=== PATIENT | female | born 1990 | race Caucasian/White ===

== ENCOUNTER 2019-07-29 12:49 | Emergency (ER) | payer BC, SELFPAY ==
[2019-07-29 12:50] VITALS: BP 135/81; PULSE 111; RESP 18; TEMP 38.4; O2SAT 96; BMI 45.4
[2019-07-29 13:02] VITALS: BP 144/82; PULSE 102; RESP 16; O2SAT 97
--- NOTE | 2019-07-29 13:05 | RAD_ITS ---
STUDY: X-RAY CHEST REASON FOR EXAM: Female, 29 years old. COUGH, FEVER, NAUSEA, WEAKNESS TECHNIQUE: PA and lateral views of the chest. COMPARISON: None. FINDINGS: The lungs are clear and expanded. There is no demonstrated pleural abnormality. Normal size heart. Normal mediastinum and berry. Normal visualized pulmonary arteries. Normal visualized aortic arch and descending thoracic aorta. Normal visualized thoracic spine. Normal visualized ribs, clavicles, and shoulders. There is no demonstrated abnormality of the visualized soft tissue structures of the upper abdomen. RAD/Chest PA and Lateral IMPRESSION: Normal x-ray examination of the chest. Electronically Signed: Kirit Bonilla MD at 13:26 EST Tel , Service support ,
--- NOTE | 2019-07-29 13:47 | ED.DCSUM_ITS ---
- ER Visit Summary Date of Service: 07/29/19 Chief Complaint: Cough with fever and chills History of Present Illness: The patient is a 29 F 3 of hypothyroidism vasovagal syncope and endometriosis. 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 Intermittent nausea vomiting with coughing. No abdominal pain. No diarrhea. No melena. No dysuria. Physical Examination: Young female vital signs are stable. Temperature 101.2. She does not look septic or toxic. H EENT exam normal except a mildly dry mucous membranes. TMs normal. Posterior pharynx normal. Mildly dry mucous membranes. No erythema or exudate or trouble swallowing breathing. Neck nontender no lymphadenopathy. No meningismus. Lungs clear to auscultation bilaterally. Dry cough. Heart tachycardic no murmur rate about 110. Abdomen soft nontender normal bowel sounds no peritoneal signs. Extremities moves all 4. Calves nontender no edema no cords. Skin unremarkable no rash. Back nontender. Neurologically patient is awake alert with no focal motor deficits. Test Results: Chest x-ray AP lateral 2 views read myself shows no acute abnormality. Normal cardiac silhouette mediastinum. Emergency Department Course and Treatment: Ramonita with patient treatment all. She did not think she could hold down p.o. fluids. She will be given IV liter normal saline. IV Zofran. P.o. Tylenol. Treatment Plan: History and exam consistent with viral syndrome most likely influenza. Fluids and rest. Alternate Tylenol Motrin. Zofran for nausea. Follow-up if not improving return if worse. Repeat exam patient is doing better after IV fluids will be discharged home. Disposition: Discharge Impression: Acute viral syndrome secondary to influenza Nausea and vomiting with mild dehydration This note was generated with [employer] dictation software. It may contain incorrect words, spelling, and punctuation that were not noted in review of the chart prior to signing ED Disposition - Plan for ED Patient: Referrals: Lilly Russo PA [Primary Care Provider] -
--- NOTE | 2019-07-29 13:50 | ED.DEP ---
ED Disposition - Plan for ED Patient: Disposition: Home or Assisted Living Instructions: VIRAL SYNDROME (Adult) Prescriptions: Ondansetron [Zofran Odt] 4 mg PO Q8H PRN PRN #7 tab PRN Reason: Nausea Prescription Printed Referrals: Lilly Russo PA [Primary Care Provider] - 3-5 Days if not improving Additional Instructions: Plenty of fluids and rest. Alternate Tylenol and Motrin for fever. Zofran as needed for nausea. Follow-up if not improving return if worse.
[2019-07-29] MEDS: 0.9% Normal Saline 1,000 ML 999 ML IV (14:40)
[2019-07-29] MEDS: Ondansetron 4 MG/2 ML Vial IV (14:40)
[2019-07-29 14:41] VITALS: PULSE 96; RESP 15; O2SAT 98
[2019-07-29 16:08] VITALS: BP 114/72; PULSE 100; RESP 16; O2SAT 99
== END 2019-07-29 16:12 | disposition home or self-care (01) ==
PROVIDERS: Emergency Provider Emergency Medicine; PCP Physician Assistant
DX: B34.9 Viral infection, unspecified (principal); J11.1 Influenza due to unidentified influenza virus with other respiratory manifestations; E86.0 Dehydration; R11.2 Nausea with vomiting, unspecified
CPT/HCPCS: 71046; 96361; 96374; 99283; J7030; J2405

== ENCOUNTER 2020-02-18 14:21 | Emergency (ER) | payer BC, SELFPAY ==
[2020-02-18 14:22] VITALS: BP 143/93; PULSE 116; RESP 24; TEMP 36.6; O2SAT 99; BMI 45.9
[2020-02-18 14:25] VITALS: BP 143/93; PULSE 116; RESP 24; TEMP 36.6; O2SAT 99
--- NOTE | 2020-02-18 14:36 | RAD_ITS ---
STUDY: X-RAY CHEST REASON FOR EXAM: Female, 30 years old. Shortness of breath and cough started on February 05, worsening yesterday. TECHNIQUE: Single AP portable view of the chest. COMPARISON: Comparison is made with prior study dated 07/29/2019. FINDINGS: Hyperinflation. The lungs are clear. There is no demonstrated pleural abnormality. Normal size heart. Normal mediastinum and berry. Normal visualized pulmonary arteries. Normal visualized aortic arch and descending thoracic aorta. Normal visualized thoracic spine. Normal visualized ribs, clavicles, and shoulders. There is no demonstrated abnormality of the visualized soft tissue structures of the upper abdomen. RAD/Chest 1 View (Portable) IMPRESSION: Normal x-ray examination of the chest. Electronically Signed: Norberto Young, at 15:41 EDT , Service support ,
--- NOTE | 2020-02-18 14:56 | ED.VIS.GEN ---
History of Present Illness Chief Complaint: Shortness of Breath Narrative: Patient started having respiratory symptoms about 12 days ago, she had a virtual visit and had a negative COVID test. She has had shortness of breath, productive cough and wheezing since then. She thinks it somewhat worse now. She has a subjective fever. She has no abdominal pain she has no urinary symptoms. She has no DVT or PE risk factors. She has no back pain or chest pain. She has no pleuritic component. No lower extremity edema or calf pain. Past Medical History - Allergies and Home Meds Allergies/Adverse Reactions: Allergies ciprofloxacin [From Cipro] Allergy (Verified 02/18/20 14:22) Anaphylaxis ciprofloxacin HCl [From Cipro] Allergy (Verified 02/18/20 14:22) Anaphylaxis ibuprofen Allergy (Verified 02/18/20 14:22) Anaphylaxis levofloxacin [From Levaquin] Allergy (Verified 02/18/20 14:22) Anaphylaxis Penicillins [PCN] Allergy (Verified 02/18/20 14:22) Anaphylaxis shellfish derived Allergy (Verified 02/18/20 14:22) Anaphylaxis tree nut Allergy (Verified 02/18/20 14:22) Anaphylaxis Primary Care Physician: Lilly Russo PA [Primary Care Provider] - Past Medical History: - - Asthma, depression Smoking Status: Never smoker Review of Systems General: Denies: Fever Eyes: Denies: Visual changes - bilaterally Cardiovascular: Denies: Chest pain Respiratory: Reports: Dyspnea, Cough Gastrointestinal: Denies: Abdominal pain, Nausea, Vomiting Genitourinary: Denies: Dysuria Musculoskeletal: Denies: Myalgias, Arthralgias Skin: Denies: Rash, Abscess, Wounds Neurological: Denies: Headache, Weakness Psych: Denies: Depression Hematologic: Denies: Easy bruising, Easy bleeding Allergy: Denies: Uticaria, Swelling of the mouth, Swelling of the tongue Physical Exam Vital Signs/Narrative: Vital Signs Temp Pulse Resp BP Pulse Ox 02/18/20 14:22 97.8 F 116 H 24 H 143/93 H 99 General: Well nourished, Well developed, - - She appears slightly anxious but does not appear in significant distress she is relatively comfortable in the bed. Head: Normocephalic ENT: Moist mucous membranes Neck: Supple Cardiovascular: Regular rhythm, No murmurs, Tachycardia Respiratory: No distress, - - She has coarse bilateral breath sounds with some wheezing. She is slightly tachypneic. She is speaking in full sentences. Abdomen: Soft, Nontender Back: Nontender, Normal Inspection. Negative for: CVA tenderness Extremities: Nontender, No edema Skin: Normal color Neurological: Alert, Oriented x3 Diagnostic/Tx/Re-eval - Medical Decision Making Has a normal ED work-up, COVID is still pending. Regardless she is told to quarantine until she gets results. She has a normal pulse ox. She now has a normal heart rate after nebulizer and she has clear lungs. I am not worried about a PE. She has no risk factors and her symptomatology is not that of a pulmonary embolus. I will discharge her in stable condition. ED Disposition - Plan for ED Patient: Disposition: Home or Assisted Living Diagnosis: Asthma Referrals: Lilly Russo PA [Primary Care Provider] - 3-5 Days
[2020-02-18 15:50] LABS: Absolute Lymphocyte Count 1.87 X10^3/uL (0.83-4.51); Absolute Neutrophil Count 7.9 X10^3/uL (2.0-7.7); Basophil# 0.04 X10^3/uL; Basophil% 0.4 % (0-1); Eosinophil# 0.18 X10^3/uL; Eosinophils% 1.7 % (0-5); Hemoglobin 14.2 g/dL (12.0-15.0); Lymphocyte # 1.87 X10^3/ul (4.0); Lymphocyte % 17.6 % (19-41); Mean Corpuscular Hgb 26.9 pg (27.0-32.0); Mean Corpuscular Volume 81.6 fL (81-99); Mean Platelet Vol. 9.5 fl (6.2-12.0); Monocyte# 0.64 X10^3/uL; NRBC Flagged by Analyzer 0 % (0-5); Neutrophil # 7.86 X10^3/uL (2.7-7.7); Platelet Count 355 K/mm3 (150-450); RBC Distribution Width CV 12.6 % (11.6-14.6); RBC Distribution Width SD 37.2 fl (35.1-43.9); Red Blood Count 5.27 M/mm3 (4.2-5.4); White Blood Count 10.6 K/mm3 (4.4-11.0)
[2020-02-18 16:05] LABS: ALB/GLOB Ratio 0.9 RATIO (0.9-2.4); AST(SGOT) 10 U/L (15-37); Alanine Aminotransfer ALT/SGPT 23 U/L (13-56); Albumin, Serum 3.3 g/dL (3.2-5.0); Alkaline Phosphatase 112 U/L (45-117); Anion Gap 5 (5-15); BUN 14 mg/dL (7-18); BUN/Creat Ratio 21.4 RATIO (10-20); Chloride 110 mmol/L (98-107); Creatinine, Serum 0.65 mg/dL (0.55-1.02); EST Glomerular Filtration Rate 114 mL/min (>60); Est Glom Filt Rate - Afr Amer 138 mL/min (>60); Estimated Creatinine Clearance 124.19 ml/min; Globulin 3.8 g/dL (2.2-4.2); Glucose 100 mg/dL (74-106); Potassium 3.9 mmol/L (3.5-5.1); Protein, Total 7.1 g/dL (6.4-8.2); Sodium Level 141 mmol/L (136-145)
[2020-02-18 16:46] VITALS: BP 129/79; PULSE 97; RESP 16; O2SAT 97
== END 2020-02-18 16:56 | disposition home or self-care (01) ==
PROVIDERS: Emergency Provider Emergency Medicine; PCP Physician Assistant
DX: J45.909 Unspecified asthma, uncomplicated (principal); F32.9 Major depressive disorder, single episode, unspecified
CPT/HCPCS: 71045; 80053; 85025; 87635; 99284; C9803; A4216; U0003

== ENCOUNTER → 2022-05-27 | Outpatient (CLI) | payer BC, SELFPAY ==
[2022-05-26 08:25] LABS: Hemoglobin 14.5 g/dL (12.0-15.0); Mean Corp Hgb Conc 32.2 g/dL (32-36); Mean Corpuscular Hgb 26.7 pg (27.0-32.0); Mean Corpuscular Volume 82.7 fL (81-99); Mean Platelet Vol. 9.1 fl (6.2-12.0); Platelet Count 391 K/mm3 (150-450); RBC Distribution Width CV 12.8 % (11.6-14.6); RBC Distribution Width SD 38.4 fl (35.1-43.9); Red Blood Count 5.44 M/mm3 (4.2-5.4); White Blood Count 8.5 K/mm3 (4.4-11.0)
[2022-05-26 09:14] LABS: Vitamin B12 568 pg/mL (211-911); Vitamin D,25 Hydroxy 18.9 ng/mL
[2022-05-26 09:29] LABS: Anion Gap 7 (5-15); BUN 14 mg/dL (7-18); BUN/Creat Ratio 19.9 RATIO (10-20); Calcium,Total 8.4 mg/dL (8.5-10.1); Chloride 107 mmol/L (98-107); Cholesterol 225 mg/dL (200); EST Glomerular Filtration Rate 103 mL/min (>60); Est Glom Filt Rate - Afr Amer 125 mL/min (>60); Ferritin 68 ng/mL (8-252); Glucose 101 mg/dL (74-106); High Density Lipoprotein 53 mg/dL; Iron 76 ug/dL (50-170); Iron Binding Capacity,Total 357 ug/dL (250-450); Potassium 4.1 mmol/L (3.5-5.1); Sodium Level 139 mmol/L (136-145); Thyroid Stim Hormone (TSH) 4.35 uIU/mL (0.358-3.74); Triglycerides 84 mg/dL; Very Low Density Lipoprotein 17 mg/dL (5-40)
--- NOTE | 2022-05-27 09:05 | EKG12_ITS ---
Test Reason : NEW MED START Blood Pressure : / mmHG Vent. Rate : 074 BPM Atrial Rate : 074 BPM P-R Int : 154 ms QRS Dur : 088 ms QT Int : 386 ms P-R-T Axes : 025 027 017 degrees QTc Int : 428 ms Normal sinus rhythm Normal ECG Confirmed by YOSSI ONEIL, TEMO ([id number]), assistant editor KELVIN BYRD ([id number]) on 05/28/2022 7:50:04 AM Referred By: Renetta Collins Confirmed By:TEMO SY MD
== END | disposition home or self-care (01) ==
LOC: PSN 09:04
PROVIDERS: PCP Physician Assistant; Referring Provider Physician Assistant; Visit Provider Physician Assistant
DX: E55.9 Vitamin D deficiency, unspecified (principal); Z79.899 Other long term (current) drug therapy
CPT/HCPCS: 36415; 80048; 80061; 82306; 82607; 82728; 82746; 83540; 83550; 84443; 85027; 93005

== ENCOUNTER 2022-08-03 08:00 | Outpatient (RCR) | payer BC, SELFPAY ==
--- NOTE | 2022-08-03 09:00 | BH.SGPN.GN ---
Behaviors/Verbalizations/Mental Status: []Pt alert and oriented, casually dressed and groomed. Eye contact good. Motor activity appropriate. Speech within normal limits. Affect congruent, mood anxious. Thoughts linear, logical, no signs of hallucinations or delusions. Reviewed pt?s symptom tracker, no risk for suicidal ideation, plan, or intent as of 08/03/22 Client Response/Progress/Benefit: []Pt's first day of IOP tx and responded well to peers. Pt reports feeling overwhelmed this morning as pt has never been in group therapy before or taken time away from work. Pt shared her biggest win is that she requested FMLA and took time off work to focus on her mental health. Pt shared she uses work as an escape and she is both proud to be focusing on her health, but also afraid to face myself. Pt receptive to group encouragement and feedback which pt appeared to benefit from. Pt will continue IOP tx to prevent decompensation, gain healthy coping skills, and improve daily functioning. Narrative Note: []
--- NOTE | 2022-08-03 09:00 | BH.COMM ---
Communication Note - Communication with Client Communication Note: Met with pt to complete initial paperwork. No significant changes since pre-admission screening. Completed [place] Suicide Screening. Mild risk due to having passive thoughts of , denies active suicidal thoughts, plan or intention. Denies access to firearms. Feels able to maintain safety. No history of previous attempts. Has hx of non-suicidal self injurious behavior. States has not self-harmed since April 2022. Contracts for safety. Consulted with Dr. Jacobson with plan to admit to [facility] level of care with dx of Bipolar 2 Disorder F 31.81
--- NOTE | 2022-08-03 10:12 | BH.SGPN.GN ---
Behaviors/Verbalizations/Mental Status: []Pt alert and oriented, casually dressed and groomed. Eye contact good. Motor activity appropriate. Speech within normal limits. Affect congruent, mood anxious. Thoughts linear, logical, no signs of hallucinations or delusions. Client Response/Progress/Benefit: [] Pt new to IOP treatment, participated in group discussion and taking notes throughout. Group worked together to identify benefits of healthy relationships which included improves mental health, encouragement, increased resilience, reduced stress, connection, someone to celebrate with, and support during challenges. Group identified factors that lead to unhealthy relationships which included trauma, lack of communication, difference in values, and lack of trust. Pt shared connecting with lack of trust and past experiences as challenges to healthy relationships. Did well to participate, provide input and ideas, as well as actively listen to other?s during the activity. Benefited from increased insight and awareness of benefits of healthy relationships and factors that contribute to unhealthy relationships. Will continue in IOP to continue to improve healthy coping skill repertoire, improve ability to challenge distortions and anxious thoughts, and prevent decompensation. ? Narrative Note: [] Behaviors/Verbalizations/Mental Status: []Pt alert and oriented, casually dressed and groomed. Eye contact good. Motor activity appropriate. Speech within normal limits. Affect congruent, mood anxious. Thoughts linear, logical, no signs of hallucinations or delusions. Client Response/Progress/Benefit: [] Pt new to IOP treatment, participated in group discussion and taking notes throughout. Group worked together to identify benefits of healthy relationships which included improves mental health, encouragement, increased resilience, reduced stress, connection, someone to celebrate with, and support during challenges. Group identified factors that lead to unhealthy relationships which included trauma, lack of communication, difference in values, and lack of trust. Pt shared connecting with lack of trust and past experiences as challenges to healthy relationships. Did well to participate, provide input and ideas, as well as actively listen to other?s during the activity. Benefited from increased insight and awareness of benefits of healthy relationships and factors that contribute to unhealthy relationships. Will continue in IOP to continue to improve healthy coping skill repertoire, improve ability to challenge distortions and anxious thoughts, and prevent decompensation. ? Narrative Note: []
--- NOTE | 2022-08-03 11:10 | BH.SGPN.GN ---
Behaviors/Verbalizations/Mental Status: [] Client alert and oriented, casually dressed and groomed. Eye contact good. Motor activity appropriate. Speech within normal limits. Affect congruent, mood euthymic. Thoughts linear, logical, no signs of hallucinations or delusions. Client Response/Progress/Benefit: [] Client responded well to session, engaged and taking notes. Worked with group to identify characteristics of healthy and unhealthy relationships. Attentive during psychoeducation about characteristics of healthy, unhealthy, and abusive relationships. Client stated within relationships she does well is being respectful towards others. Client reported an area she would like to improve in is being more honest with her communication. Client shared she often will omit the full truth when communicating to others which leads her to not get the support she needs. Appeared to benefit from identifying area wants to work on to build healthier relationships. Client's first day. Client to continue IOP to increase healthy coping, improve daily functioning, and prevent decompensation.
== END 2022-08-03 23:59 ==
LOC: BHIOP 08:00
PROVIDERS: PCP Physician Assistant; Referring Provider Psychiatry & Neurology Psychiatry; Visit Provider Psychiatry & Neurology Psychiatry
DX: F31.81 Bipolar II disorder (principal)
CPT/HCPCS: S9480; 90853

== ENCOUNTER 2022-08-04 06:50 | Outpatient (RCR) | payer BC, SELFPAY ==
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
[2022-08-04 09:04] VITALS: BP 155/74; PULSE 90
--- NOTE | 2022-08-04 10:10 | BH.SGPN.GN ---
Behaviors/Verbalizations/Mental Status: [] Eye contact is good. Motor activity is appropriate. Appearance is casual. Speech is Appropriate. Mood is euthymic. Affect is congruent. Thoughts are linear and logical. No evidence of psychosis or hallucinations. Client Response/Progress/Benefit: [] Pt was an active participant in group discussion and activity. Attentive during psychoeducation. Along with peers was able to identify barriers to taking action. Identified several symptoms and stressors that she feels are holding her back from progress such as not believing in self, fear of unknown, belief she doesn't deserve good things, and not wanting to feel uncomfortable. Client stated these things prevent her from moving forward or trying new things. Benefited from increased self-awareness of obstacles. Will continue in IOP to increase healthy coping, challenge negative thoughts, and prevent decompensation.
--- NOTE | 2022-08-04 11:07 | BH.SGPN.GN ---
Behaviors/Verbalizations/Mental Status: []Client alert and oriented, casually dressed and groomed. Eye contact good. Motor activity appropriate. Speech within normal limits. Affect congruent, mood anxious. Thoughts linear, logical, no signs of hallucinations or delusions. Client Response/Progress/Benefit: []Client responded well to session, taking notes and participating in worksheet discussion. Client connected with the zones of action/change and that making sustainable change comes from stepping out of one?s comfort zone into the learning zone. Client set a goal to gain control over not feeling deserving. Client reported plans to do one thing she enjoys daily for one week. Client identified keeping a progress tracker, planning ahead, as well as reminding herself of the importance of this goal as supports needed to help accomplish this goal. Appeared to benefit from identifying a small goal to benefit mental health. Will continue IOP tx to increase healthy coping, promote mood stability, and prevent decompensation. Narrative Note: []
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
--- NOTE | 2022-08-04 13:11 | BH.DR.ITP ---
Initial Treatment Plan Patient Information Visit Information: ADMISSION DATE: EXPECTED LOS: 4-6 weeks Problems/Symptoms Problem #1:: Depression Symptom:: Sadness, hopelessness, guilt, biological disruption of sleep, fatigue, decreased concentration, passive thoughts of , passive suicidal ideation Problem #2:: Anxiety Symptom:: Worry, rumination, feeling of fear, flashbacks, avoidance, reexperiencing
--- NOTE | 2022-08-05 09:00 | BH.SGPN.GN ---
Behaviors/Verbalizations/Mental Status: [] Eye contact is good. Motor activity is appropriate. Appearance is casual. Speech is Appropriate. Mood is agitated. Affect is congruent. Thoughts are linear and logical. No evidence of psychosis. Reviewed daily check in sheet and reports a 1/5 for suicidal thoughts and a 0/5 for suicidal intention. This is a decrease from pt's baseline. Client Response/Progress/Benefit: [] Pt was an active participant in group discussion. Attentive. Daily symptom tracker noted 2/5 for depression, 3/5 for agitation, and a 1/5 for anxiety. Client identified mental health positive as writing poetry this morning to help her think through emotions. Stated this did help decrease her agitation. Client reported additional mental health positive as cancelling her outpatient therapy appointment yesterday because was feeling overwhelmed since starting IOP this week. Noted this as a positive because she typically wouldn't cancel due to feeling need to do the right thing. Identified current stressor as feeling torn that she hasn't told her dad that she is in IOP. Reported she doesn't feel ready to talk to him about her mental health struggles due to him having 2 strokes which makes it difficult for him to regulate his emotions. Group was supportive and provided encouragement which was beneficial. Will continue in IOP to improve daily functioning, increase healthy coping and prevent decompensation.
--- NOTE | 2022-08-05 10:10 | BH.SGPN.GN ---
Behaviors/Verbalizations/Mental Status: [] Eye contact is good. Motor activity is appropriate. Appearance is casual. Speech is Appropriate. Mood is anxious. Affect is congruent. Thoughts are linear and logical. No evidence of psychosis Client Response/Progress/Benefit: [] Pt was an active participant in group discussions. Attentive. Pt participated during interactive discussion on Problem-Solving. Along with peers provided insight on the definition of problem, the importance of problem-solving in one's mental wellness, and consequences of avoiding problems. Attentive AEB by note-taking and asking questions during education on Problem-Solving in the Moment protocol (Ask what the problem is, Brainstorm solutions, choose a solution, Do it, Evaluate). Active and engaged during experiential activity in which pt and peers practiced problem solving strategies. Benefited from increased insight on problem-solving strategies and the benefit of solid problem solving skills on one's mental health. Will continue in IOP to maintain safety, prevent decompensation, increase healthy coping, and to improve functioning to return to work. Narrative Note: []
--- NOTE | 2022-08-05 11:05 | BH.SGPN.GN ---
Behaviors/Verbalizations/Mental Status: []Pt alert and oriented, casual dress, hygiene tended to. Eye contact good. Motor activity WNL. Speech appropriate rate and tone. Affect congruent, mood anxious and depressed.? Thoughts linear, logical, no signs of hallucinations or delusions. Client Response/Progress/Benefit: []Pt engaged in session as evidenced by pt listening to others and providing input throughout. Pt completed problem solving example with group and identified a goal they want to work on. Goal identified as: believing she deserves good things. Pt?s barriers included: negative thinking/distortions, self-doubt, and fear. Pt also identified steps they could take such as creating a list of affirmations, practicing saying them out loud, and eventually getting to the point in which she can say ?I am deserving of good things? to herself in the mirror. Pt seemed to benefit from learning about problem solving method and rehearsing problem-solving skills in the moment. Pt will continue IOP tx to promote mood stability, improve confidence in self, and further reduce negative thinking. Narrative Note: []
--- NOTE | 2022-08-05 15:45 | BH.MDN ---
Multi-Disciplinary Note - Note 60-min Individual Time Started:: 12:05 Date: 08/05/22 Purpose of session/treatment goals addressed:: Purpose of session was to identify current symptoms and stressors, gather additional background information, and identify treatment goals for [facility]. Eye Contact:: Good Motor Activity:: Appropriate Appearance:: Casual Speech:: Appropriate Mood:: Anxious, Dysthymic Affect:: Congruent Thoughts:: Linear, Logical, No evidence of hallucinations/delusions noted Staff Interventions:: psychoeducation on: - cognitive triangle and behavior activiation, CBT techniques, rapport building, strengths perspective, treatment planning, goal setting, taught coping skills Client Response:: Client reported she's on FMLA from work due to her mental health declining since March 2022. Client reported work is significant stressor for her. Stated when at work she is overwhelmed because of being under staffed and having to do the work of two people. Client reported she also is coming to acceptance that the line of work she went into is not the best job for her mental health. Client reported March 2022 she was very depressed and started to self-harm again. Client stated she chose to go see a PCP and was referred to a psychiatrist. Client reported she started medications and was doing better until June 2022. Client reported work was becoming more and more stressful with less staff and more responsibility. Client stated she began to have suicidal thoughts and looking for more things to harm herself. Client reported in the last three weeks she started to engage in more destructive behavior. Client stated she started to drink alcohol 3-4 days a week and using marijuana edibles. Client stated this behavior is unusual for her. Client stated her outpatient psychiatrist referred to her to [facility]. Client stated she hasn't drank in 2 days. Client reported while in [facility] she would like to learn how to put her insight into action. Client explained she feels like she is very insightful, but struggles with putting into action changes to make things better. Client stated she would like to also learn more about herself outside of her job. Client reported her plan is to find a new career this summer and would like to learn more about herself since her identity has always been her job. Client responded well to psychoeducation about cognitive triangle and behavior activation. Client reported goal for the week is go to the gym at least once. Risks/Concerns:: Client reports passive thoughts of . Denies intention or plan to date. Client states I would never kill myself. Client is future focused. Denies access to firearms or stockpile of medications. Progress Toward Goals/Plan:: Progress noted with client reporting no drinking in the past 2 days and decreased anxiety since being off from work. Client struggles with depression, anxiety, recent self-harm, and negative thought patterns. Plan is for client to continue IOP to improve daily functioning, increase healthy coping, and prevent decompensation. Time Stopped:: 13:00
--- NOTE | 2022-08-05 17:23 | BH.MTP_ITS ---
Master Treatment Plan - Patient Information Program Physician:: Dr. Calzada Primary Therapist:: Anne Kohler, [facility] - Psychiatric Diagnoses Psychiatric Diagnoses:: 1. Bipolar 2 disorder (currently depressed). 2. Generalized anxiety disorder. 4 3. PTSD. 4. Cluster B traits Diagnosis Code(s):: F31.81 - Estimated LOS Estimated LOS (in weeks):: 6 Problem/Goal #1 - Problem/Goal #1 Stated Goal:: Client will reduce depressive symptoms, feelings of worthlessness, and anhedonia due to Major Depressive Disorder through Intensive Outpatient Program. Description of Barriers: Potential barriers to treatment include: negative thoughts, core beliefs, feelings of hopelessness, and low motivation. 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 The patient was referred to the [facility] behavioral health IOP program by her outpatient provider for worsening symptoms of depression and anxiety. Her biggest stressor is her job where the children have significant emotional and other issues and are sometimes violent. This triggers the patient's PTSD trauma symptoms from the past. Her symptoms have been worsening since early June 2022. The patient uses marijuana Gummies once a week and uses alcohol every week. Her alcohol intake has increased in the past 3 weeks to drinking 2 to 3 days a week and having 2-4 vodka seltzers when she does drink. Patient endorses depressed mood with crying spells. She has low motivation, hopelessness, occasional worthlessness and guilt. - Objectives Objective #1 Stated Objective: Client will learn and utilize 2-3 healthy coping strategies to manage depressive symptoms as shown by reduced DSM-5 cross-cutting symptom measure score. Interventions: Therapist and group will help client identify triggers and warning signs of depression and will teach client various coping skills to manage client?s symptoms and give client tangible resources to use to regulate emotions. Discharge Criteria: Pt will have met this goal when pt?s score on the DSM 5 cross cutting measure for depression has been decreased and reports utilization of at least two healthy coping skills to manage depressive symptoms. Target Date: 09/14/22 Review Date: 08/31/22 Objective #2 Stated Objective: Identify and replace 3-4 negative self-talk messages that reinforce depressive symptoms.?? Interventions: Therapist will help client identify distorted, negative beliefs about self and world and replace those messages with positive, affirmative mess ages. Discharge Criteria: Client will have achieved this goal when can identify at least 3 negative self-talk messages and replace those messages with positive, affirmative messages. Target Date: 09/14/22 Review Date: 08/31/22 Problem/Goal #2 - Problem/Goal #2 Stated Goal:: Client will reduce overall frequency, intensity, and duration of anxiety to improve functioning. Description of Barriers: Potential barriers to treatment include: negative thoughts, core beliefs, feelings of hopelessness, and low motivation. 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 The patient was referred to the [facility] behavioral health IOP program by her outpatient provider for worsening symptoms of depression and anxiety. Her biggest stressor is her job where the children have significant emotional and other issues and are sometimes violent. This triggers the patient's PTSD trauma symptoms from the past. Her symptoms have been worsening since early June 2022. The patient uses marijuana Gummies once a week and uses alcohol every week. Her alcohol intake has increased in the past 3 weeks to drinking 2 to 3 days a week and having 2-4 vodka seltzers when she does drink. Patient endorses depressed mood with crying spells. She has low motivation, hopelessness, occasional worthlessness and guilt. - Objectives Objective #1 Stated Objective: Client will learn and implement 2-3 calming skills to reduce overall anxiety and manage anxiety. Interventions: Therapist and group sessions will help client identify physiological warning signs of anxiety, increase awareness of thoughts that increase anxiety, and identify behaviors that reinforce anxious symptoms. Group and individual counseling will teach client calming skills to help manage anxious symptoms. Discharge Criteria: Client will have achieved this goal when can verbalize at least 2 calming skills and reports skills successfully help reduce anxious symptoms. Target Date: 09/14/22 Review Date: 08/31/22 Objective #2 Stated Objective: Pt will decrease anxious symptoms AEB pt?s score on the DSM 5 cross-cutting measure improve pt?s daily functioning. Interventions: Through groups and individual therapy, pt will be provided education about anxiety?s impact on body and common physiological reaction to anxiety. Therapist will teach pt appropriate breathing techniques and build healthy coping skills to manage daily anxieties. Discharge Criteria: Pt will have met this goal when pt?s score on the DSM 5 cross cutting measure for anxiety has been decreased and per pt?s report daily functioning has improved. Target Date: 09/14/22 Review Date: 08/31/22
--- NOTE | 2022-08-10 09:05 | BH.SGPN.GN ---
Behaviors/Verbalizations/Mental Status: [] Eye contact is good. Motor activity is appropriate. Appearance is casual. Speech is Appropriate. Mood is anxious. Affect is congruent. Thoughts are linear and logical. No evidence of psychosis. Reviewed daily check in sheet and reports 1/5 for suicidal ideation and 0/5 for intent. Client Response/Progress/Benefit: [] Pt was an active participant in group discussion. Attentive. Provided appropriate feedback. Daily symptom tracker notes 2/5 for depression/agitation and 1/5 for self-harm urges. Emotion for today is inspired. Shared recent stressors regarding her FMLA which has increased anxiety, however it was approved yesterday which provided her with some ease and comfort. Utilizing opposite-action more often since starting IOP and has recently starting writing and journaling. I'm starting to do things rather than just think about doing them. States I'm finding myself again. Shared recent stressors and how these are impacting her mental health. Benefited from group support, encouragement, and feedback. Will continue in IOP to prevent decompensation, increase healthy coping, and improve functioning to return to work. Narrative Note: []
--- NOTE | 2022-08-10 10:15 | BH.SGPN.GN ---
Behaviors/Verbalizations/Mental Status: []Pt alert and oriented, neatly dressed and groomed. Eye contact good. Motor activity appropriate. Speech within normal limits. Affect congruent, mood depressed. Thoughts linear, logical, no signs of hallucinations or delusions. Client Response/Progress/Benefit: []Pt was an active participant during interactive group discussions. Attentive during psychoeducation on the six types of boundaries. Pt along with peers contributed to interactive discussion on defining what a boundary is and group identified challenges to setting boundaries which included; lack of confidence, lack of self-worth, fear of losing friends, and guilt. Group identified the benefits to setting boundaries and pt identified personal benefits of keeping herself from ?over-extending? which makes time for self-care. Pt benefited from increased awareness and insight on the importance/benefit to setting health boundaries. Will continue IOP tx to prevent decompensation, improve daily functioning, and reduce negative thinking patterns. ? Narrative Note: []
--- NOTE | 2022-08-10 11:10 | BH.SGPN.GN ---
Behaviors/Verbalizations/Mental Status: []Client alert and oriented, casually dressed and groomed. Eye contact good. Motor activity appropriate. Speech within normal limits. Affect constricted, mood dysthymic. Thoughts linear, logical, no signs of hallucinations or delusions. Client Response/Progress/Benefit: []Pt responded well to session AEB listening attentively to peers and providing input. Pt attentive during psychoeducation on the different boundary styles. Pt reported she struggles with taking time for herself and often takes on too much. Pt stated has difficulty saying no and often doesn't ask for help. Pt reported due to not setting boundaries she feels stressed all the time. Pt recognizes not having boundaries has negatively impacted her mental health. Pt was given a handout on strategies for healthy boundary setting. Appeared to benefit from increasing insight to boundary setting and the impacts on mental health. Seemed to benefit from increased awareness of boundary styles and strategies to improve setting boundaries. Will continue IOP tx to increase healthy coping, improve boundary setting, and prevent decompensation.
--- NOTE | 2022-08-11 09:00 | BH.SGPN.GN ---
Behaviors/Verbalizations/Mental Status: [] Eye contact is good. Motor activity is appropriate. Appearance is casual. Speech is Appropriate. Mood is anxious. Affect is congruent. Thoughts are linear and logical. No evidence of psychosis. Reviewed daily check in sheet and pt reports 1/5 for suicidal ideations and 0/5 for intent. Client Response/Progress/Benefit: [] Pt was an active participant in group discussions. Attentive. Daily symptom tracker notes 2/5 for depression and self-harm urges. Emotion for today is sad. States i was in a mood yesterday which impacted her mental health yesterday afternoon and evening. States I have to process and tackle my emotions from yesterday and has plans to address at least one today. Despite her distress she started painting which she found to be therapeutic. In the past she would intentionally avoid or ignore her emotions and not seek to process. Attempting to utilize the obstacle as a way to learn, grow, and practice coping skills. Benefited from group support, encouragement, and feedback. Will continue in IOP to prevent decompensation, increase healthy coping, and to improve functioning to return to work. Narrative Note: []
--- NOTE | 2022-08-11 10:15 | BH.SGPN.GN ---
Behaviors/Verbalizations/Mental Status: [] Client alert and oriented, casually dressed and groomed. Eye contact good. Motor activity appropriate. Speech within normal limits. Affect congruent, mood euthymic. Thoughts linear, logical, no signs of hallucinations or delusions. Client Response/Progress/Benefit: Pt participated at times during group discussion. Active during group activity. Attentive during psychoeducation on fear and the impact that fear of failure can have. Pt and peers provided insight on thoughts that contribute to fear of failure such as: I'm not good enough, I won't succeed, I know I can't/couldn't do it, and I could have done that better. Pt and peers were able to identify the benefits to failure in an attempt to reframe. Group identified that failure can be a way to: learn what to do differently, lead to personal growth, increase self-compassion, and problem-solve. Pt benefited from psychoeducation on the impact of fear of failure and changing perspective on how to view setbacks. Pt will continue in IOP to improve daily functioning, challenge distorted thoughts, and prevent decompensation.
--- NOTE | 2022-08-11 11:10 | BH.SGPN.GN ---
Behaviors/Verbalizations/Mental Status: []Client alert and oriented, casually dressed and groomed. Eye contact good. Motor activity appropriate. Speech within normal limits. Affect congruent, mood depressed. Thoughts linear, logical, no signs of hallucinations or delusions. Client Response/Progress/Benefit: []Client responded well to session, engaged in the experiential activity and attentive throughout group processing. Client reported fear of failure has kept client from being herself, exploring new relationships, and expanding friendships. Client completed fear of failure worksheet and was able to identify thoughts and behaviors that reinforce personal fear of failure including difficulty stepping out of her comfort zone, isolation, and not prioritizing self-care. Client participated in group discussion regarding strategies to overcome fear of failure. Identified wanting to work on redefining success and failure for herself. Appeared to benefit from increased knowledge of strategies to combat fear of failure and gaining self-awareness. Client will continue IOP tx to increase emotional regulations skills, healthy boundaries, and improve overall functioning. Narrative Note: []
--- NOTE | 2022-08-12 10:10 | BH.SGPN.GN ---
Behaviors/Verbalizations/Mental Status: []Client alert and oriented, casually dressed and groomed. Eye contact fair. Motor activity appropriate. Speech within normal limits. Affect constricted, mood dysthymic and anxious. Thoughts linear, logical, no signs of hallucinations or delusions. Client Response/Progress/Benefit: []Client was an active participant in group discussions and activity. Attentive during psychoeducation. Client along with peers were able to identify several negatives on the picture given to the group. Client and peers also identified positives in the picture and made the connection that finding positives is much more difficult. Interactive discussion on the definition of perspective, how perspective is formed, and why perspective is important in treatment. Client along with peers also identified that perspective can either motivate and encourage treatment or be a barrier to receiving help. Client shared she is trying to adopt a more hopeful/positive perspective currently, but struggles at times with intrusive negative thoughts. Shared a hopeful perspective would aid in improving her confidence and willingness to follow through with exploring a different career. Recognizes when her perspective is negative she tends to ruminate and decrease self-care activities. Will continue in IOP to stabilize moods, increase consistent use of healthy coping, and prevent decompensation. Narrative Note: []
--- NOTE | 2022-08-12 11:10 | BH.SGPN.GN ---
Behaviors/Verbalizations/Mental Status: []Pt alert and oriented, casually dressed and groomed. Eye contact good. Motor activity appropriate. Speech within normal limits. Affect constricted, mood depressed. Thoughts linear, logical, no signs of hallucinations or delusions. Client Response/Progress/Benefit: []Pt was attentive and contributed to small group discussion. Pt completed strengths exploration worksheet. Pt able to acknowledge how these strengths are helping pt and can continue to help pt in mental health journey. Reflected on how pt?s love of learning, athleticism, and artistic abilities have helped pt in the past and continue to help pt with mental health. Pt worked with group to identify strategies that can help increase utilization of personal strengths and how to challenge one?s perspective in general. Benefited from identifying personal strengths and strategies for enhancing use of identified strengths. Pt to continue IOP tx to prevent decompensation, improve daily functioning, and reduce negative thinking patterns. ? Narrative Note: []
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
--- NOTE | 2022-08-17 09:05 | BH.SGPN.GN ---
Behaviors/Verbalizations/Mental Status: [] Eye contact is good. Motor activity is appropriate. Appearance is casual. Speech is Appropriate. Mood is depressed. Affect is congruent. Thoughts are linear and logical. No evidence of psychosis. Reviewed daily check in sheet and pt reports 1/5 for suicidal ideations and 0/5 for intent. Client Response/Progress/Benefit: [] Pt was an active participant in group discussion. Attentive. Daily symptom tracker notes 1/5 for depression, anxiety, and self-harm urges. Mental health win was I was really productive over the past few days. Increased energy and motivation. Feels good to complete tasks. She is also journaling consistently and beginning to see the benefits. She reports increased nightmares which have been a source of trauma triggers. Discussed how this can lead to anxiety, restlessness, and other distressing emotions through the day. Group discussed triggers to depression, anxiety, and even trauma which can impact them as well as strategies to manage triggers. Feedback provided on the role of acceptance of emotions and not viewing having emotions as a failure or weakness. Benefited from group support, encouragement, and feedback. Will continue in IOP to prevent decompensation, increase healthy coping, and improve functioning to return to work. Narrative Note: []
--- NOTE | 2022-08-17 10:14 | BH.SGPN.GN ---
Behaviors/Verbalizations/Mental Status: []Pt alert and oriented, neatly dressed and groomed. Eye contact good. Motor activity appropriate. Speech within normal limits. Affect congruent, mood depressed. Thoughts linear, logical, no signs of hallucinations or delusions. Client Response/Progress/Benefit: []Pt responded well to session, attentive during psychoeducation on SMART goals (Specific, Measurable, Achievable, Realistic, and Time-bound) and engaged in group experiential activity. Participated in an interactive discussion with peers in which they worked together to define what a goal is and the benefits of having goals. Group identified benefits as; gives purpose, improves motivation, improves relationships, and personal growth. Participated in interactive discussion in which group identified barriers to setting goals and following through with goals. Personal barriers included negative self-talk/ self-comparing, feeling pressured by other's expectations, and fear of failure. Benefited from increased awareness of benefits and strategies for goal-setting. Will continue in IOP to improve mood stability, improve self-advocacy and self-care, and improve daily functioning. Narrative Note: []
--- NOTE | 2022-08-17 11:10 | BH.SGPN.GN ---
Behaviors/Verbalizations/Mental Status: []Pt alert and oriented, casually dressed, appropriately groomed. Eye contact good. Motor activity appropriate. Speech within normal limits. Affect congruent, mood euthymic. Thoughts linear, logical, no signs of hallucinations or delusions. Client Response/Progress/Benefit: []Pt was engaged during discussion and willing to complete the worksheet challenging them to develop a personal SMART goal. Pt chose the goal of going to the gym 3 out of 4 times before or after IOP. Stated this goal will be beneficial to increase daily movement and improve energy. Pt identified barriers which included excuses, physical pain, and low motivation. Identified be proactive the night before, not pushing herself too much at gym, and putting it into her daily routine as potential solutions to her barriers. Pt receptive to identifying solutions for these barriers and willing to begin working on this goal. Benefited from this group by developing a short-term SMART goal related to mental health. Will continue IOP to increase healthy coping, challenge distortions, increase self-care, and prevent decompensation.
--- NOTE | 2022-08-18 09:05 | BH.SGPN.GN ---
Behaviors/Verbalizations/Mental Status: []Pt alert and oriented, casually dressed and groomed. Eye contact good. Motor activity appropriate. Speech within normal limits. Affect congruent, mood anxious. Thoughts linear, logical, no signs of hallucinations or delusions. Reviewed pt?s symptom tracker, no risk for suicidal ideation, plan, or intent as of 08/18/22 Client Response/Progress/Benefit: []Pt responded well to session, attentive and providing supportive statements. Pt reports feeling anxious this morning as pt is exploring the possibility that she could start a new career if she chooses. Pt shared this is exciting but also anxiety-producing because pt is uncertain and this makes pt uncomfortable. Pt also is fighting the sense of urgency to make a choice immediately by slowing herself down through journaling and talking with her . Pt's mental health wins today include having a good conversation about her future with her and using positive self-talk. Pt appeared to benefit from reflecting on personal gains. Pt will continue IOP tx to reduce negative thinking, increase distress tolerance, and improve mood. Narrative Note: []
--- NOTE | 2022-08-18 10:10 | BH.SGPN.GN ---
Behaviors/Verbalizations/Mental Status: [] Eye contact is good. Motor activity is appropriate. Appearance is casual. Speech is Appropriate. Mood is depressed. Affect is congruent. Thoughts are linear and logical. No evidence of psychosis. Client Response/Progress/Benefit: [] Pt was an active participant during group discussions. Attentive during psychoeducation. Participated along with peers on working to define locus of control and provide examples of internal and external locus of control. Active and engaged during experiential activity and was able to see correlations between activity and emotions/perspectives associated with internal vs external locus of control. Pt shared that her locus of control is typically internal b/c I was blaming myself for everything and believed that I was the problem. Benefited from increased insight and awareness of internal vs external locus of control and how this could impact mental health. Will continue in IOP to prevent decompensation, increase healthy coping, and improve functioning to return to work. Narrative Note: []
--- NOTE | 2022-08-18 15:00 | BH.SGPN.GN ---
Behaviors/Verbalizations/Mental Status: []Client alert and oriented, casually dressed and groomed. Eye contact good. Motor activity appropriate. Speech within normal limits. Affect congruent, mood anxious and depressed. Thoughts linear, logical, no signs of hallucinations or delusions. Client Response/Progress/Benefit: []Client responded well to session, actively engaged during psychoeducation on circles of control including areas in which we have control, some influence, or concern but no control over in daily life. Client completed a worksheet where group members identified what aspects of a current stressor they may have some control or influence over. Client indicated wanting to work on the stressor of triggering thoughts/time of year. Shared having influence over her response to triggers, use of self-care, and perspective and control over whether she takes her meds and follows through with therapy. Group then worked together on identifying steps to begin using an internal locus of control when addressing current stressors. Client identified plans to continue with journaling to process triggers as they arise. Client will continue IOP tx to improve consistent skill application and thought challenging, promote mood stability, and prevent decompensation. Narrative Note: []
--- NOTE | 2022-08-19 09:05 | BH.SGPN.GN ---
Behaviors/Verbalizations/Mental Status: []Eye contact good, casually dressed, motor activity appropriate, speech normal rate and tone, mood euthymic and anxious, congruent affect, thoughts linear and intact, no evidence of delusions or hallucinations. Reviewed pt's symptom tracker, pt denies suicidal ideation, plan, or intent as of this date. Future oriented. Client Response/Progress/Benefit: []Pt responded well to session, attentive and willing to process with group. Pt did well to identify wins, which included challenge herself to be vulnerable and so something ?goofy/silly? in a public place. Shared dancing in a department store and indicated this had been a positive and empowering experience for her. Additional win noted as successfully getting out of the house and spending time at the gym which had been a goal of hers for this week. Shared having to set boundaries with herself not to push too hard as she recently slipped a disc in her back. Expressed plans to continue to use opposite action to maintain consistency with this goal. Stressor noted as upcoming return to work. Receptive of supportive feedback and suggestions. Progress noted in improved consistency of skill application. Pt recommended continued IOP tx to promote mood stability, reduce anxiety, as well as prevent decompensation. Narrative Note: []
--- NOTE | 2022-08-19 10:10 | BH.SGPN.GN ---
Behaviors/Verbalizations/Mental Status: []Client alert and oriented, casually dressed and groomed. Eye contact good. Motor activity appropriate. Speech within normal limits. Affect congruent to topics being discussed, mood euthymic. Thoughts linear, logical, no signs of hallucinations or delusions. Client Response/Progress/Benefit: []Pt engaged in session AEB listening attentively to others and providing insight to group discussion. Pt engaged in activity, able to connect how it can be uncomfortable when things are out of own control. Pt worked with group to identify what can be hard to accept. Group identified things hard to accept include: of a loved one, loss of job, loss of relationship, current situation, boundaries, and past decisions. Pt worked on identifying what personal things are hard to accept for herself. Pt seemed to benefit from increase awareness of importance of acceptance. Pt to continue IOP to improve confidence, increase use of self-care, and prevent decompensation. Narrative Note: []
--- NOTE | 2022-08-19 11:10 | BH.SGPN.GN ---
Behaviors/Verbalizations/Mental Status: []Pt alert and oriented, casually dressed and groomed. Eye contact good. Motor activity appropriate. Speech within normal limits. Affect congruent, mood euthymic and anxious. Thoughts linear, logical, no signs of hallucinations or delusions. Client Response/Progress/Benefit: []Pt responded well to session, engaged and providing examples. Pt engaged as group continued discussion on acceptance and how lack of acceptance can impact mental health. Pt and peers identified what makes acceptance challenging and pt completed a self-reflection exercise on what is hard to accept in pt's life. Pt worked in a small group to process how not accepting can cause more harm. Group identified strategies to increase acceptance and pt selected looking at all the consequences and evidence to help pt increase acceptance. Pt appeared to benefit from gaining insight and strategies to increase acceptance. Pt will continue IOP tx to reduce negative thinking, increase distress tolerance, and improve daily functioning. ? Narrative Note: []
--- NOTE | 2022-08-20 13:52 | BH.MDN ---
Multi-Disciplinary Note - Note 60-min Individual Time Started:: 09:05 Date: 08/20/22 Purpose of session/treatment goals addressed:: Purpose of session was to address goals 1 and 2 from MTP. Eye Contact:: Good Motor Activity:: Appropriate Appearance:: Casual Speech:: Appropriate Time Stopped:: 09:55
--- NOTE | 2022-08-23 09:05 | BH.SGPN.GN ---
Behaviors/Verbalizations/Mental Status: [] Eye contact is good. Motor activity is appropriate. Appearance is casual. Speech is Appropriate. Mood is depressed. Affect is congruent. Thoughts are linear and logical. No evidence of psychosis. Reviewed daily check in sheet and pt reports 1/5 for suicidal thoughts and 0/5 for intent. Client Response/Progress/Benefit: [] Pt was an active participant in group discussion. Attentive. Daily symptom tracker notes 2/5 for anxiety an depression. Also reports 2/5 for self-harm urges. Emotion for today is distant. Mental health win was I realize that I have to leave my job. She talked at length regarding the emotional and physical toll of her current job. Shared how it has impacted her mental health and led to constant flight or fight responses and was always unpredictable. Attempting to manage the thought that she is giving up, a failure, and leaving her co-workers with her responsibilities. Reframing and challenging these thoughts stating If I don't leave my job I will literally which has been helpful. Continues to utilize skills and self-care which has been beneficial in motivation and increased clarity to make decisions. Benefited from group support, encouragement, and feedback. Will continue in IOP to prevent decompensation, stabilize mood, and improve functioning. Narrative Note: []
--- NOTE | 2022-08-23 10:14 | BH.SGPN.GN ---
Behaviors/Verbalizations/Mental Status: []Pt alert and oriented, casually dressed and groomed. Eye contact good. Motor activity appropriate. Speech within normal limits. Affect congruent, mood euthymic and anxious. Thoughts linear, logical, no signs of hallucinations or delusions. Client Response/Progress/Benefit: []Pt was an active participant AEB contributing to discussion, taking notes, and engaging in group activity. Connected with the topic of pitfalls and listened to group discussion on barriers that prevent from choosing a healthier path to mental wellness. Group worked together to identify examples of personal pitfalls and pt identified theirs as not communicating when struggling, being a people pleaser, and negative core beliefs.? Pt benefited from group as Pt learned to better identify potential barriers to improving mental health symptoms. Pt will continue IOP tx to reduce negative thinking, increase self-compassion, and improve mood stability. Narrative Note: []
--- NOTE | 2022-08-23 11:14 | BH.SGPN.GN ---
Behaviors/Verbalizations/Mental Status: []Client alert and oriented, casually dressed and groomed. Eye contact good. Motor activity appropriate. Speech within normal limits. Affect congruent, mood euthymic, anxious. Thoughts linear, logical, no signs of hallucinations or delusions. Client Response/Progress/Benefit: []Client receptive of session, engaged throughout AEB actively listening and contributing to discussion, as well as taking notes. Client participated in the experiential activity and did well to communicate ideas with peers and manage emotions. Client and group processed how the emotions and perspective of the group impacted the activity. Group worked together to identify different coping skills to help manage pitfalls. Client identified pitfalls they struggle with and shared wanting to work on pitfall of negative core beliefs by using strategies of using the ?I am? lenny on her phone, setting specific times to use positive affirmations, and practice. Benefited from identifying personal pitfalls and strategies to overcome these pitfalls. Will continue IOP tx to promote continued progress, prevent decompensation and improve thought challenging. Narrative Note: []
--- NOTE | 2022-08-24 10:15 | BH.SGPN.GN ---
Behaviors/Verbalizations/Mental Status: []Pt alert and oriented, casually dressed and groomed. Eye contact good. Motor activity appropriate. Speech within normal limits. Affect congruent, mood euthymic. Thoughts linear, logical, no signs of hallucinations or delusions. Client Response/Progress/Benefit: []Pt responded well to session AEB contributing to discussion, taking notes, and listening attentively to others. Group discussed the benefits of managed anger and anger as a secondary emotion. Pt shared perspective on personal benefits of anger as getting emotion out and recognizing boundaries.? Pt completed worksheet on anger triggers and personal warning signs of anger. Pt identified their biggest triggers as boundaries being crossed, lack of communication, and being rushed. Appeared to benefit from increased knowledge of the anger cycle as well as personal triggers. Will continue IOP tx to improve self-confidence, reduce rumination and negative thinking, and increase mood stability. Narrative Note: []
--- NOTE | 2022-08-24 11:15 | BH.SGPN.GN ---
Behaviors/Verbalizations/Mental Status: []Client alert and oriented, casually dressed and groomed. Eye contact good. Motor activity appropriate. Speech within normal limits. Affect congruent, mood euthymic. Thoughts linear, logical, no signs of hallucinations or delusions. Client Response/Progress/Benefit: []Pt was engaged throughout AEB contributing to group discussion and self-reflection. Group finished processing cues to anger worksheet. Pt contributed as group brainstormed healthy coping skills for better managing anger which included: music, walking/exercise, changing the environment, communicating with supports, and journaling. Pt reported she would like to work on skill of asking clarifying questions and going for a walk to help manage anger responses. Pt appeared to benefit from identifying different techniques to manage anger as well as gaining awareness of potential consequences of unmanaged anger. Will continue IOP tx to continue use of healthy coping, increase self-care, increase confidence, and prevent decompensation.
--- NOTE | 2022-08-25 09:03 | BH.SGPN.GN ---
Behaviors/Verbalizations/Mental Status: []Eye contact good, casually dressed, motor activity appropriate, speech normal rate and tone, mood euthymic, congruent affect, thoughts linear and intact, no evidence of delusions or hallucinations. Reviewed pt's symptom tracker, suicidal ideation within baseline, pt denies plan, or intent as of this date. Future oriented. Client Response/Progress/Benefit: []Pt responded well to session, attentive and willing to process with group. Pt reported mental health positive as reaching out to her friend that she has been avoiding for along time. Pt reported additional positive as went to work yesterday to visit her boss and talk about return to work, but her boss wasn't there. Pt stated having to walk into work yesterday helped confirmed her feelings that she cannot go back to work. Pt reported current stressor as still having to have conversation with her boss about not feeling able to return to work. Appeared to benefit from group?discussion and supportive environment. Recommended continued IOP tx to continue to improve healthy skills, challenge distortions, as well as prevent decompensation.
--- NOTE | 2022-08-25 10:10 | BH.SGPN.GN ---
Behaviors/Verbalizations/Mental Status: []Eye contact is good. Motor activity is appropriate. Appearance is casual. Speech is Appropriate. Mood is anxious and euthymic. Affect is congruent. Thoughts are linear and logical. No evidence of psychosis. Client Response/Progress/Benefit: []Pt was an active participant in group discussions and experiential activity. Attentive during psychoeducation on resilience. Participated in interactive discussion with peers on the definition of resilience and where it comes from. Shared that resilience is one?s ?willingness to keep moving forward in times of struggle?. Group identified that resiliency can be impacted by; past experiences, learned behaviors, and mental health state. Group also worked together to identify the benefits of being resilient and how it is related to mental health. Able to relate experiential activity of group juggle to topics of resilience. Worked well with peers in small group in which they identified factors that contribute to resilience. Benefited from increased awareness of resilience and the factors that contribute to building resilience. Will continue in IOP to promote gains, increase healthy thought patterns and self-advocacy, as well as improve functioning in order to return to work. Narrative Note: []
--- NOTE | 2022-08-25 11:10 | BH.SGPN.GN ---
Behaviors/Verbalizations/Mental Status: []Pt alert and oriented, neatly dressed and groomed. Eye contact good. Motor activity appropriate. Speech within normal limits. Affect congruent, mood euthymic and anxious. Thoughts linear, logical, no signs of hallucinations or delusions Client Response/Progress/Benefit: []Pt responded well to session AEB completing the resilience worksheet provided. Pt participated in the discussion and worked cooperatively with group to identify strategies to enhance each of the components discussed. Pt reports belief they already use resilience traits of??moving toward goals, self-awareness, and making connections.? Pt shared these traits will help pt overcome current stressors. Pt stated they would like to continue to develop resilience trait of ?nurturing a positive view of self.? Pt seemed to benefit from discussing strategies for improving personal resilience and identifying resilience traits pt already possesses. Progress noted as pt reports utilizing healthy coping skills outside of IOP tx. Will continue IOP tx to improve daily functioning, reduce negative self-talk, and further promote gains. Narrative Note: []
--- NOTE | 2022-08-25 13:06 | BH.TPR ---
Treatment Plan Review Date of Admission:: 08/03/22 Date of Treatment Plan Review:: 08/25/22 Admitting Diagnoses:: 1. F31.81 Bipolar 2 disorder (currently depressed). 2. Generalized anxiety disorder. 4 3. PTSD. 4. Cluster B traits Current Diagnoses:: 1. F31.81 Bipolar 2 disorder (currently depressed). 2. Generalized anxiety disorder. 4 3. PTSD. 4. Cluster B traits Patient's Response to Treatment:: Pt has responded well to treatment AEB consistent attendance, engaged in group sessions, and follows through with homework from individual session. Status of Current Problems and Symptoms: Client currently reporting continued anxious symptoms, especially with returning to work part-time next week. Client has been struggling with anxiety about work because her work environment is triggering to her past trauma. Client has desire to quit work but has to wait until she can secure a new job. Client continues to report mild depressive symptoms. Client's symptoms have improved since being on FMLA and out of her work environment. Per DSM 5 cross cutting measure at review her overall symptoms have decreased by 24%. Problem #1 Problem Name:: Depression Status of Goals:: Obj 1: partially met, ongoing work encouraged. Pt able to identify healthy coping skills like opposite action, journaling, and positive affirmations. Client's DSM 5 cross cutting measure at review indicates a 43% decrease in depression. Obj 2: Partially met, ongoing work encouraged. Pt able to identify negative thought patterns and negative core thoughts. Problem #2 Problem Name:: Anxiety
--- NOTE | 2022-08-30 09:05 | BH.SGPN.GN ---
Behaviors/Verbalizations/Mental Status: []Pt alert and oriented, casually dressed and groomed. Eye contact good. Motor activity appropriate. Speech within normal limits. Affect congruent, mood euthymic. Thoughts linear, logical, no signs of hallucinations or delusions. Reviewed pt?s symptom tracker, no risk for suicidal ideation, plan, or intent as of 08/30/22 Client Response/Progress/Benefit: []Pt responded well to session, providing supportive statements to peers. Pt reports feeling expectant and hopeful this morning. Pt shared she talked to her boss about not wanting to return to her job and pt was pleasantly surprised with how well the conversation went. Pt stated she is stressed about figuring out the next steps with work like extending her FMLA, but pt is hopeful she will figure this out. Pt also identified finding a magical coffee shop recently which allowed pt to decompress and relax. Pt appeared to benefit from reflecting on her progress and assertive communication. Pt will continue IOP tx to promote mood stability, further increase self-compassion, and reinforce healthy coping skills. Narrative Note: []
--- NOTE | 2022-08-30 10:05 | BH.SGPN.GN ---
Behaviors/Verbalizations/Mental Status: [] Client alert and oriented, casually dressed and groomed. Eye contact good. Motor activity appropriate. Speech within normal limits. Affect congruent, mood euthymic. Thoughts linear, logical, no signs of hallucinations or delusions. Client Response/Progress/Benefit: [] Client responded well to session, contributing to discussion and engaged during the activity. Group identified the benefits of change which included: personal growth, positive perspective, increased confidence and better mental health. Worked with the group to identify barriers to change, which included: uncomfortable emotions such as anxiety, lack of awareness, low energy, support system, and negative thinking. Client participated along with group in activity where they identified and discussed the emotions related to change. Client reported she related to all the emotions associated with change, and discussed how she has gained awareness from negative emotions that invoked her to make changes. Benefited from increased awareness and understanding of emotions, benefits, and barriers related to change. Will continue IOP tx to continue to increase self-worth, reduce negative thinking patterns, and improve overall functioning. Narrative Note: []
--- NOTE | 2022-08-30 11:13 | BH.SGPN.GN ---
Behaviors/Verbalizations/Mental Status: [] Client alert and oriented, casually dressed and groomed. Eye contact good. Motor activity appropriate. Speech within normal limits. Affect congruent, mood euthymic. Thoughts linear, logical, no signs of hallucinations or delusions. Client Response/Progress/Benefit: [] Client responded well to session, attentive AEB participating in activity and actively engaging in group discussion. Group processed activity to relate the strategies used to overcome barriers in the activity to managing change in own life. Discussed and set SMART goal in group as it relates to change group members are wanting to make. Client identified change she wants for herself is to have better finances. Identified being in the preparation stage. Client stated her goal is to save money from her next two paychecks. Appeared to benefit from identifying a small goal to work towards. Client will continue IOP tx to increase overall functioning, follow a healthy routine, and increase healthy coping to combat anxiety and depression. Narrative Note: []
--- NOTE | 2022-08-31 09:05 | BH.SGPN.GN ---
Behaviors/Verbalizations/Mental Status: [] Eye contact is good. Motor activity is appropriate. Appearance is casual. Speech is Appropriate. Mood is anxious. Affect is congruent. Thoughts are linear and logical. No evidence of psychosis. Reviewed daily check in sheet and no reports of suicidal ideations or intent. Client Response/Progress/Benefit: [] Pt was an active participant in group discussion. Attentive. Daily symptom tracker notes 07/11 for anxiety. Mental health win involved practicing skill of sitting with the uncomfortable. Elaborated more on the event/experience which required her to sit with her anxiety and thoughts as well as her skills to process. She is planning on transitioning back to work which is a significant trigger however she has communicated to her co-workers and boss that she is planning to leave the current job and they were encouraging and supportive of her decision. She is currently applying to other jobs. Pt reports addressing and working through distressful emotions more effectively since starting IOP. Also setting boundaries and challenging people-pleasing urges which were detrimental to her mental health. Benefited from group support, encouragment, and feedback. Will continue in IOP to prevent decompensation, stabilize mood, and improve functioning to return to work. Narrative Note: []
--- NOTE | 2022-08-31 10:10 | BH.SGPN.GN ---
Behaviors/Verbalizations/Mental Status: []Pt alert and oriented, neatly dressed and groomed. Eye contact good. Motor activity appropriate. Speech within normal limits. Affect congruent, mood euthymic. Thoughts linear, logical, no signs of hallucinations or delusions. Client Response/Progress/Benefit: []Pt was an active participant in group discussion and experiential activity. Attentive during psychoeducation on possible causes to developing and maintain unhealthy coping skills which can impact mental health. Pt participated in interactive discussion identifying common unhealthy coping skills and pt identified personal ones as over-working, distracting with others? problems, and sleeping. ?Able to make connections between experiential activity (folder towers) and importance of having a solid base of internal and external coping skills. Benefited from increased awareness of internal and external coping skills and identifying unhealthy coping skills. Will continue in IOP to promote gains, further increase self-care practices, and improve self-confidence. Narrative Note: []
--- NOTE | 2022-09-02 09:02 | BH.SGPN.GN ---
Behaviors/Verbalizations/Mental Status: []Eye contact is good. Motor activity is appropriate. Appearance is casual. Speech is Appropriate. Mood is dysthymic. Affect is constricted. Thoughts are linear and logical. No evidence of psychosis. Reviewed daily check in sheet and indicates a 3/5, with 5 being severe, for suicidal ideation and a 0/5 for suicidal intention. This is a recent increase in suicidal thoughts. IOP individual therapist will check-in with client today. Client Response/Progress/Benefit: []Client responded well to session AEB listening attentively to others and sharing thoughts and feelings. Client stated mental health positive as making it through her work day yesterday. Client reported additional positive as staying sober last night despite wanting to drink alcohol as a way to escape her feelings. Client reported she kept herself from drinking by reminding herself of the progress she has made and used video games as a distraction. Client stated current stressor as needing to allow herself to process the emotions and thoughts that were triggered after returning to work. Client stated she plans to journal to process her feelings. Progress noted with client being able to use healthy coping skills to stop self from using unhealthy coping skills. Client to continue IOP to continue use of healthy coping, challenge distorted thoughts, and prevent decompensation. Narrative Note: []
--- NOTE | 2022-09-02 10:10 | BH.SGPN.GN ---
Behaviors/Verbalizations/Mental Status: [] Eye contact is good. Motor activity is appropriate. Appearance is casual. Speech is Appropriate. Mood is depressed. Affect is congruent. Thoughts are linear and logical. No evidence of psychosis. Client Response/Progress/Benefit: [] Pt was an active participant in group discussions. Attentive during psychoeducation. Engaged and provided feedback along with peers on defining anxiety. Along with peers worked together to identify the benefits of anxiety which included; motivates us, helps us prepare, helps us change and grow, helps us identify danger and can keep us safe. Participated during interactive discussion on how anxiety impacts one physically (increased heart rate, sweaty hands, etc), cognitively (poor concentration, fogginess, catastrophizing, etc), and behaviorally (avoidance, anger, safety behaviors, etc). Completed worksheet on how anxiety impacts her physically, cognitively, and behaviorally. Benefited from increase insight into anxiety's benefits and detriments. Will continue in IOP to prevent decompensation, stablize mood, increase healthy coping, and improve functioning to return to work. Narrative Note: []
== END 2022-09-03 23:59 ==
LOC: BHIOP 06:50
PROVIDERS: PCP Physician Assistant; Referring Provider Psychiatry & Neurology Psychiatry; Visit Provider Psychiatry & Neurology Psychiatry
DX: F31.81 Bipolar II disorder (principal); F12.90 Cannabis use, unspecified, uncomplicated; F41.1 Generalized anxiety disorder; F43.10 Post-traumatic stress disorder, unspecified; E03.9 Hypothyroidism, unspecified; E66.9 Obesity, unspecified; F10.90 Alcohol use, unspecified, uncomplicated; Z79.899 Other long term (current) drug therapy; Z81.8 Family history of other mental and behavioral disorders
CPT/HCPCS: S9480; 90832; 90834; 90837; 90853

== ENCOUNTER 2022-09-06 08:15 | Outpatient (RCR) | payer BC, SELFPAY ==
[2022-09-04 02:09] VITALS: BP 155/74; PULSE 90
--- NOTE | 2022-09-07 09:05 | BH.SGPN.GN ---
Behaviors/Verbalizations/Mental Status: [] Eye contact is good. Motor activity is appropriate. Appearance is casual. Speech is Appropriate. Mood is euthymic. Affect is full. Thoughts are linear and logical. No evidence of psychosis. Reviewed daily check in sheet and no reports of suicidal ideations or intent. Client Response/Progress/Benefit: [] Pt was an active participant in group discussion. Attentive. Daily symptom tracker notes 06/10 for depression and axnxiety. Emotion for today is rejuvenated Mental health win is that she has deep discussion with her spouse. This was beneficial to her mental health due to increased honest communication and utilizing healthy communication skills. She is also continuing to advocate for herself in her current job. Stress is that she noticed excessive energy and restlessness which she described as dianne. In the past these episodes have led to impulsivity, spending excessively, and risky behaviors. Reports that she is aware of warning signs and identified strategies to help minimize and burn excessive energy through healthy activities (working outside). Benefited from group support, encouragement, and feedback. Will continue in IOP to maintain gains, prevent decompensation, increase healthy coping, and improve functioning. Narrative Note: []
--- NOTE | 2022-09-07 10:15 | BH.SGPN.GN ---
Behaviors/Verbalizations/Mental Status: []Eye contact is good. Motor activity is appropriate. Appearance is casual. Speech is Appropriate. Mood is euthymic and anxious. Affect is full. Thoughts are linear and logical. No evidence of psychosis. Client Response/Progress/Benefit: []Pt was an active participant in group discussions. Attentive during psychoeducation. Participated during interactive discussions in which peers attempted to define crisis. Pt identified several examples of potential crisis. Group also worked together to identify unhealthy responses to crisis which included; isolation, self-harm, overuse of distraction, avoidance, and lashing out. Pt identified she often responds with use of avoidance or overscheduling herself to avoid dealing with crisis. Benefited from increased understanding of crisis and awareness of personal responses to crisis. Pt will continue IOP tx to further improve communication with supports, maintain mood stability, and prevent decompensation. Narrative Note: []
--- NOTE | 2022-09-07 11:15 | BH.SGPN.GN ---
Behaviors/Verbalizations/Mental Status: []Client alert and oriented, casually dressed and groomed. Eye contact good. Motor activity appropriate. Speech within normal limits. Affect congruent, mood euthymic. Thoughts linear, logical, no signs of hallucinations or delusions. Client Response/Progress/Benefit: []Client responded well to session as evidenced by client listening attentively to others and providing strategies during small group discussion. Connected as fellow participants discussed the importance of identifying and addressing personal warning signs. Client identified warning signs for crisis and gained further awareness of earliest warning signs. Client created a crisis action plan to help client better manage warning signs for crisis. Client?s action plan for overworking/taking on too much includes: setting boundaries, waiting to respond to requests from others, challenging negative thinking, and increasing self-care activities. Client appeared to benefit from creating a crisis action plan and increasing self-awareness. Client to continue IOP tx to increase confidence, challenge distorted thoughts, and prevent decompensation.
--- NOTE | 2022-09-08 09:00 | BH.SGPN.GN ---
Behaviors/Verbalizations/Mental Status: []Eye contact good, casually dressed, motor activity appropriate, speech normal rate and tone, mood euthymic and anxious, congruent affect, thoughts linear and intact, no evidence of delusions or hallucinations. Reviewed pt's symptom tracker, pt suicidal ideation within established baseline, denies any plan or intent. Future oriented. Client Response/Progress/Benefit: []Pt responded well to session, attentive and willing to process with group. Identified current mental health wins as challenging herself to use opposite action when tempted to lay down and avoid a stressor. Identified use of cleaning as an emotional release instead and ended up feeling more accomplished and relaxed as a result. Additional win noted as challenging herself to practice active listening when having a conversation with her [id number]. Shared finding they have several commonalities she had not previously been aware of and was able to better understand her as a result. Expressed plans to continue to challenge herself to connect with her. Current stressor noted as waiting to hear back about extending her FMLA and shared taking several steps to aid in facilitating the process. Pt appeared to benefit from group support and encouragement. Continues to display progress in use of thought challenging and communication with supports. Recommended continued IOP tx to continue to improve self-advocacy/boundary setting, promote mood stability, as well as prevent decompensation. Narrative Note: []
--- NOTE | 2022-09-08 10:10 | BH.SGPN.GN ---
Behaviors/Verbalizations/Mental Status: [] Eye contact is good. Motor activity is appropriate. Appearance is casual. Speech is Appropriate. Mood is euthymic. Affect is full. Thoughts are linear and logical. No evidence of psychosis. Client Response/Progress/Benefit: [] Pt was an active participant in group discussion. Attentive during psychoeducation on the CBT [place] (Thoughts, Behaviors, Emotions). Engaged in small group session in which members identified common thoughts, emotions, and actions associated with an event associated with lack of self-confidence. Completed worksheet in which pt identified a thought that is keeping them stuck or is in obstacle to increased mental wellness. The thought that pt identified was I'm not good enough. Benefited from increased awareness of the basis of CBT therapy as well as thoughts are impacting pt' progress. Will continue in IOP to prevent decompensation, stabilize mood, increased healthy coping, and transition back to full-time work., Narrative Note: []
--- NOTE | 2022-09-08 11:10 | BH.SGPN.GN ---
Behaviors/Verbalizations/Mental Status: []Pt alert and oriented, neatly dressed and groomed. Eye contact good. Motor activity appropriate. Speech within normal limits. Affect congruent, mood euthymic. Thoughts linear, logical, no signs of hallucinations or delusions. Client Response/Progress/Benefit: []Pt responded well to session, contributing to discussion when prompted, and attentive throughout discussion. Pt identified a negative thought that has kept them stuck. Pt's thought was I?m not ____ enough. Pt reported when they think this way, they overcompensate, over-work, and try to prove herself to others. Pt worked to reframe the thought by finding more rational, realistic ways to look at the thoughts and then processed within group setting. Pt reframed the thought to ?this might be difficult, and I might struggle, but I can still try.? Pt appeared to benefit from practicing challenging negative thinking. Pt will continue IOP tx to promote mood stability and further increase self-confidence. Narrative Note: []
--- NOTE | 2022-09-08 12:14 | PCM.BH.PN_ITS ---
Progress Note Progress Note: History of Present Illness/Interim History: The patient is a 32-year-old female single who has been with her boyfriend for 12 years and currently lives with his mother and grandmother in a house that her boyfriend owns. She has a history of bipolar disorder and PTSD and is seen in follow-up at the [facility] behavioral health program where I saw her last about 1 month ago. The patient feels she is learning valuable skills in the program that she has been able to apply to her daily life. According to the staff she is consistent and engaged in the program and has made progress overall. She states that her mood is stable and she has much more positive moods than negative at this point. She is much less depressed than before and her energy level is much better during the day. She denies any crying spells now. She denies hopelessness, passive thoughts of , active suicidal ideation, homicidal ideation, hallucinations or delusions. She denies symptoms of dianne. She does still have occasional passive, fleeting suicidal ideation which only occurs now about 2 or 3 times a week and she has no plan for suicide. She has much less self-harm thoughts now only once or twice a week and has not acted on any self-harm urges. 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 Her plans include changing to a different career as this current career is way too stressful for her. Current Psychiatric Medications: [] Wellbutrin XL 300 mg every morning (on this dose for 2 months); Abilify 5 mg p.o. daily (x2 months at this dose); Prozac 20 mg p.o. daily (on this 10 years) Mental Status Examination: [] Patient is an obese female who wears glasses and is casually dressed and groomed with good hygiene. She is ambulatory with a normal gait and has no psychomotor agitation or retardation. She is cooperative during the interview. Eye contact is fair to good and speech is normal rate and rhythm and fluent with no pressure. Mood is euthymic. Affect is full and normal. Thought process is goal-directed and organized. Thought content: There is evidence of fleeting passive suicidal ideation several times a week but less than before. There is no evidence of passive thoughts of , active suicidal ideation, plan for suicide, homicidal ideation, hallucinations or delusions. Reality testing is intact. Intelligence is average. Judgment is intact. Insight is fair and improving. Impulsivity is moderate. Diagnoses: [] 1. Bipolar 2 disorder (depression resolving) 2. Generalized anxiety disorder 3. PTSD 4. Cluster B traits 5. Primary support and work issues 6. Hypothyroidism 7. Obesity Plan: [] The patient will continue the IOP program at [facility] as the structure, support, education and group therapy will hopefully prevent worsening of the patient's symptoms. She felt safe during the interview and if it anytime she does not feel safe she will let us know or go to the emergency room. The risk, options, possible complications and side effects of the medications were discussed with the patient and she again and she understands and accepts these. No medication changes were made today. She will continue to follow-up with her outpatient providers and I will see the patient in follow-up in several weeks.
--- NOTE | 2022-09-10 10:15 | BH.SGPN.GN ---
Behaviors/Verbalizations/Mental Status: []Pt alert and oriented, neatly dressed and groomed. Eye contact good. Motor activity appropriate. Speech within normal limits. Affect congruent, mood content, euthymic. Thoughts linear, logical, no signs of hallucinations or delusions. Client Response/Progress/Benefit: []Pt was an engaged participant AEB providing input, listening to others, and taking notes. Participated in interactive group discussion on internal and external barriers to mental health progress. Pt described current reality using a living room metaphor. Pt shared feeling like ?I?m hanging out with one support looking at a list of all my stressors and the emotional impacts they have?. Reported desired reality is being able to maintain the progress she has made and improve the number of her supports, as well as reducing the emotional impact of her stressors. Pt shared personal barriers to desired realty include: negative core beliefs, unhealthy coping behaviors, and isolation. Benefited from increased awareness of current barriers to progress as well as current/desired realities. Pt to continue IOP to prevent decompensation, improve daily functioning, and increase use of healthy coping skills. ? Narrative Note: []
--- NOTE | 2022-09-10 11:10 | BH.SGPN.GN ---
Behaviors/Verbalizations/Mental Status: []Client alert and oriented, casually dressed and groomed. Eye contact good. Motor activity appropriate. Speech within normal limits. Affect congruent to topics being discussed, mood euthymic. Thoughts linear, logical, no signs of hallucinations or delusions. Client Response/Progress/Benefit: []Client an active participant, encouraging peers and contributed as group brainstormed ideas on how to cope with internal barriers that keep clients stuck from moving towards goals. Able to identify barriers to desired reality. Worked with group to identify strategies to help overcome barriers. Identified personal barriers to desired reality. Client wants to work on overcoming the barrier of negative core beliefs by identifying the evidence against the negative beliefs. Benefited from group by identifying obstacles and solutions to desired reality. Client to continue IOP to continue use of healthy coping, continue to focus on self-care, and prevent decompensation.
--- NOTE | 2022-09-10 14:58 | BH.MDN_ITS ---
Multi-Disciplinary Note - Note 30-min Individual Time Started:: 09:00 Date: 09/10/22 Purpose of session/treatment goals addressed:: Purpose of session was to address goals 1 and 2 from [facility]. 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 Client stated she does have to work 2 times next week but both days of work will be from home. Client reported she is feeling excited that she advocated for herself to not go back to work because she recognizes how detrimental it is to her mental health. However noted some anxiety that she will have a lot of free time if not working. Client agreed she could easily fill that time up with projects around her house and focusing on utilizing the skills she is learning [facility] to maintain her progress. Client reported since she does not have to go back into her work building she does feel her anxiety decreasing and mood improving. Client stated she surprised that she is taking steps to put herself first because in the past choosing to not go back to work would not have been an option for her. Client reported she can note significant treatment progress with establishing new core beliefs. Client stated she continues to combat the core belief that she does not deserve to be happy. Client starting to recognize she does as her happiness and stability in her life. Client and therapist discussed importance of client creating a routine and structure for the extended family she will be on since she will not be coming to [facility] for that whole time. Client agreeable to start treating that schedule over the weekend and will identify various projects that she could accomplish while off work. Client agreed she feels ready for discharge from [facility] next week. Client stated she will start the [facility] aftercare program the week after discharge from [facility]. Risks/Concerns:: Denies suicidal ideation, plan or intention to date. future oriented. Progress Toward Goals/Plan:: Progress noted with client reporting decreased anxiety and depression. 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 Client reported in the past doing something that is healthy for her mental health would have been extremely challenging due to some negative core beliefs she has. Client notes this as progress being able to put her self first. Plan is for client to discharge from [facility] next week. Time Stopped:: 09:35
--- NOTE | 2022-09-13 09:05 | BH.SGPN.GN ---
Behaviors/Verbalizations/Mental Status: [] Eye contact good. Motor activity appropriate. Speech within normal limits. Affect congruent, mood euthymic. Thoughts linear, logical, no signs of hallucinations or delusions. Reviewed client?s symptom tracker, no risk for suicidal ideation, plan, or intent as of 09/13/2022. Client Response/Progress/Benefit: [] Client responded well to session, attentive and willing to process with group. Identified current mental health wins as opening up over the weekend to family about her mental health progress. Client shared how she was also able to successfully utilize self talk to prevent herself from shutting down with . Current stressor noted as waiting back still on [place] paperwork and the unknowns of if it will be accepted or not. Client appeared to benefit from group support and encouragement. Client gave positive feedback to other group members as they shared. Recommended continued IOP tx to continue to increase overall functioning, increase self worth, and increase thought challenging. Narrative Note: []
--- NOTE | 2022-09-13 10:10 | BH.SGPN.GN ---
Behaviors/Verbalizations/Mental Status: [] Eye contact is good. Motor activity is appropriate. Appearance is casual. Speech is Appropriate. Mood is euthymic. Affect is full. Thoughts are linear and logical. No evidence of psychosis. Client Response/Progress/Benefit: [] Pt was an active participant in group discussion. Attentive during psychoeducation on fixed mindset. Participated during interactive discussions in which group worked together to define 'fixed mindset'. Descriptors identified included; only one way of seeing things, absolute thinking, not compromising, and believing that nothing could change. Participated in further discussion on the negatives that result from a 'fixed' mindset which are; emotional dysregulation, decreased confidence in oneself, feeling 'stuck', feelings of worthlessness, hopelessness, and 'giving up'. Benefited from increased understanding of 'fixed' mindset and its impact on mental health. Will continue in IOP to prevent decompensation, increase healthy coping, and to improve functioning to return to work. Narrative Note: []
--- NOTE | 2022-09-13 11:10 | BH.SGPN.GN ---
Behaviors/Verbalizations/Mental Status: []Pt alert and oriented, neatly dressed and groomed. Eye contact good. Motor activity appropriate. Speech within normal limits. Affect congruent, mood euthymic. Thoughts linear, logical, no signs of hallucinations or delusions. Client Response/Progress/Benefit: [] Pt engaged during activity and discussion AEB providing some input, connecting with peers, as well as taking notes throughout. Pt did well to engage as group worked on identifying characteristics and benefits of adopting a growth mindset. Worked with fellow participants in reframing the example fixed thoughts into growth mindset thoughts. Reframed personal fixed thought of ?I?m a bother? with growth mindset thought of ?It?s okay that I have needs.? Benefitted from discussing benefits of growth mindset and brainstorming strategies for prompting growth-mindset. Pt shared it is easier for her to challenge thoughts now than when she first started IOP. Pt did well in small group to challenge own thoughts and help peers. Pt will continue IOP tx to promote gains, reinforce healthy coping skills, and further combat distortions. Narrative Note: []
--- NOTE | 2022-09-14 09:05 | BH.SGPN.GN ---
Behaviors/Verbalizations/Mental Status: []Pt alert and oriented, neatly dressed and groomed. Eye contact good. Motor activity appropriate. Speech within normal limits. Affect congruent, mood euthymic. Thoughts linear, logical, no signs of hallucinations or delusions. Reviewed pt?s symptom tracker, no risk for suicidal ideation, plan, or intent as of 09/14/22 Client Response/Progress/Benefit: []Pt responded well to session, attentive and providing supportive feedback. Pt reports feeling happy today and pt shared that this is a significant mental health win as pt is allowing myself to enjoy it and not worry. Pt is also actively applying for new jobs as pt has decided her previous job was not good for her mental health. Pt's stressor today is not knowing what the future holds for pt, professionally, but pt reports more confidence in managing this worry. Pt continues to make progress towards her tx goals AEB her consistent report of reduced depression. Pt will continue IOP tx to promote gains and further increase self-confidence to manage stressors. Narrative Note: []
--- NOTE | 2022-09-14 10:12 | BH.SGPN.GN ---
Behaviors/Verbalizations/Mental Status: []Client alert and oriented, casually dressed and groomed. Eye contact good. Motor activity appropriate. Speech within normal limits. Affect congruent, mood anxious and euthymic. Thoughts linear, logical, no signs of hallucinations or delusions. Client Response/Progress/Benefit: []Client receptive of session, actively engaged throughout AEB taking notes and attentive as group provided input and examples to discussion. Appeared to connect with group topic of cognitive distortions and the impact of thought patterns on mental health, coping behaviors, and relationships. Reflected that she personally tends to struggle with distortions of predicting the future and should/must thoughts. Noting ?I assume I know what someone will say before even having the conversation?. Client appeared to benefit from gaining insight on distorted thinking patterns and how this impacts overall mental health. Progress noted in client report of improved insight and ability to combat distortions with alternative positive thoughts. Will continue IOP tx to reduce anxiety and depression, continue to maintain gains, and increase overall functioning. Narrative Note: []
--- NOTE | 2022-09-14 11:15 | BH.SGPN.GN ---
Behaviors/Verbalizations/Mental Status: []Eye contact is good. Motor activity is appropriate. Appearance is casual. Speech is WNL. Mood is euthymic. Affect is congruent. Thoughts are linear and logical. No evidence of psychosis. Client Response/Progress/Benefit: []Pt engaged participant AEB providing input during small group discussion and engaging in activity. Activity involved working with peers to answer questions related to psychoeducation on cognitive distortions and practicing reframing distorted thoughts. Pt collaborated with the group to determine the answers. Identified cognitive distortions struggles with the most as personalization, mind reading, labeling, shoulds, and disqualifying the positives. Able to connect impat distortions has on her mental health. Benefited from rehearsing ways to challenge/reframe cognitive distortions and by gaining increased insight into examples/definitions of 10 most common cognitive distortions. Will continue in IOP to challenge distorted thoughts, build confidence, and prevent decompensation.
--- NOTE | 2022-09-15 09:01 | BH.SGPN.GN ---
Behaviors/Verbalizations/Mental Status: [] Eye contact good. Motor activity appropriate. Speech within normal limits. Affect congruent, euthymic. Thoughts linear, logical, no signs of hallucinations or delusions. Reviewed client?s symptom tracker, no risk for suicidal ideation, plan, or intent. Client Response/Progress/Benefit: [] Client responded well to session, attentive and willing to process with group. Client noted mental positive as today being her last day in IOP. Client noted significant progress since starting IOP. Client shared significant decrease in her anxiety and depression compared to when she first started the program. Client stated she notices many difference in herself since doing this program. Client identified additional months of positive as using opposite action yesterday to get herself to do yard work despite having the desire to just lay around. Client noted feeling optimistic today. Client appeared to benefit from group support and encouragement. Client demonstrated significant treatment progress since starting IOP. Client to discharge from [facility] today.
--- NOTE | 2022-09-15 10:10 | BH.SGPN.GN ---
Behaviors/Verbalizations/Mental Status: []Pt alert and oriented, neatly dressed and groomed. Eye contact good. Motor activity appropriate. Speech within normal limits. Affect congruent, mood euthymic. Thoughts linear, logical, no signs of hallucinations or delusions. Client Response/Progress/Benefit: []Pt was an active participant in group discussion and activity. Attentive during psychoeducation. Along with peers was able to identify barriers to taking action. Identified several symptoms and stressors that she feels are holding her back from progress such as negative core beliefs, ?shoulds,? and shame.? Stated these things have kept pt from self-compassion and not feeling worthy to make healthy changes. Pt shared that she does not let these barriers ?drive my bus? as often or for as long. Benefited from increased self-awareness of obstacles. Will discharge from IOP tx as pt has accomplished her tx goals and no longer meets criteria for IOP level of care. Narrative Note: []
== END 2022-09-15 12:24 | disposition home or self-care (01) ==
LOC: BHIOP 08:15
PROVIDERS: PCP Physician Assistant; Referring Provider Psychiatry & Neurology Psychiatry; Visit Provider Psychiatry & Neurology Psychiatry
DX: F31.81 Bipolar II disorder (principal); F43.10 Post-traumatic stress disorder, unspecified; F41.1 Generalized anxiety disorder; E03.9 Hypothyroidism, unspecified; E66.9 Obesity, unspecified; Z79.899 Other long term (current) drug therapy
CPT/HCPCS: S9480; 90832; 90834; 90853

== ENCOUNTER 2022-09-30 08:00 | Outpatient (RCR) | payer BC, SELFPAY ==
--- NOTE | 2022-09-30 14:26 | BH.MTP_ITS ---
Master Treatment Plan - Patient Information Program Physician:: Dr. Calzada Primary Therapist:: Anne Kohler [facility] - Psychiatric Diagnoses Psychiatric Diagnoses:: Bipolar 2 disorder (currently depressed). 2. Generalized anxiety disorder. 4 3. PTSD. 4. Cluster B traits Diagnosis Code(s):: F31.81 - Estimated LOS Estimated LOS (in weeks):: 8 Problem/Goal #1 - Problem/Goal #1 Stated Goal:: client will maintain or see a reduction in symptoms AEB client score on the DSM 5 cross-cutting measure and improve client's daily functioning. - Objectives Objective #1 Stated Objective: Client will continue to consistently apply healthy coping skills to maintain progress made in IOP tx. Interventions: Through group therapy, client will review warning signs and triggers as well as healthy coping skills learned in IOP tx to successfully ma intain gains while transitioning into outpatient therapy. Discharge Criteria: Client will have accomplished this goal when client's score on the DSM-5 cross-cutting measure has either maintained or reduced over a 12 week period. Target Date: 11/25/22 Review Date: 10/28/22 Objective #2 Stated Objective: Client will learn and utilize 2-3 maintenance strategies to prevent decompensation. Interventions: Through group therapy, client will be provided with education on healthy maintenance behaviors, relapse prevention techniques, and healthy coping strategies Discharge Criteria: Client will have accomplished this goal when can report using at least 2 maintenance skills to prevent decompensation. Target Date: 11/25/22 Review Date: 10/28/22
== END 2022-10-03 23:59 ==
LOC: BHOG 08:00
PROVIDERS: PCP Physician Assistant; Referring Provider Psychiatry & Neurology Psychiatry; Visit Provider Psychiatry & Neurology Psychiatry
DX: F31.81 Bipolar II disorder (principal); F41.1 Generalized anxiety disorder; F43.10 Post-traumatic stress disorder, unspecified
CPT/HCPCS: 90853

== ENCOUNTER 2022-10-04 08:08 | Outpatient (RCR) | payer BC, SELFPAY ==
--- NOTE | 2022-10-07 14:00 | BH.SGPN.GN ---
Behaviors/Verbalizations/Mental Status: []Client alert and oriented, casually dressed and groomed. Eye contact fair to good. Motor activity appropriate. Speech within normal limits. Affect congruent, mood euthymic and anxious. Thoughts linear, logical, no signs of hallucinations or delusions. Client Response/Progress/Benefit: []Receptive of session, engaged throughout. Pt reports she has remained consistent in attending outpatient counseling and psychiatry appointments, as well as maintaining medication compliance. Noted use of positive self-talk, opposite action, and having difficult conversations with supports as coping skills aiding in ongoing mental health maintenance. Engaged and attentive during discussion of vulnerability and benefits of practicing vulnerability. Shared being vulnerable has not been easy for her as she struggles with fear of disappointing herself or others. Group discussed ways we avoid feeling vulnerable and how this negatively affects mental health and relationships. Appeared to benefit from group support and discussion reflecting on the positive impact vulnerability can have on mental health. Identified plans to challenge herself to reach out to a support as a way in which she could practice being vulnerable in the next week. Pt will continue with aftercare tx to maintain gains and prevent decompensation. Narrative Note: []
--- NOTE | 2022-10-14 14:00 | BH.SGPN.GN ---
Behaviors/Verbalizations/Mental Status: []Client alert and oriented, casual in appearance. Eye contact good. Motor activity appropriate. Speech within normal limits. Affect congruent. Mood euthymic. Thoughts linear, logical, no signs of hallucinations or delusions Client Response/Progress/Benefit: [] Pt responded well to session AEB providing input throughout and listening attentively to others. Pt reported meeting with outpatient counselor this week and has a psychiatry appointment for next Tuesday. Reports taking medications as prescribed. Pt identified several coping skills she has been using over the past week to continue to manage mental health sx, which included: meditation, reading, opposite action, and affirmations. Pt connected with self-reflection discussion. Worked with group to identify the benefits of self-reflection. Appeared to benefit from identifying how to incorporate self-reflection into daily life. Pt completed aftercare specific self-reflection activity and indicated she has seen continued progress in making self-care time a priority but would like to continue to focus on making improvements in addressing negative core beliefs. Willing to complete weekly self-reflection assignment for homework, identifying plans to journal and review her IOP binder. Pt to continue aftercare to maintain gains and prevent decompensation. Narrative Note: []
--- NOTE | 2022-10-21 14:00 | BH.SGPN.GN ---
Behaviors/Verbalizations/Mental Status: []Pt alert and oriented, neatly dressed and groomed. Eye contact good. Motor activity appropriate. Speech within normal limits. Affect congruent, mood euthymic. Thoughts linear, logical, no signs of hallucinations or delusions. Client Response/Progress/Benefit: []Pt receptive of session, engaged throughout. Pt shared they have been consistent with their medications and they have been maintaining appointments with their outpatient mental health providers. Pt reports using self-care, deep breathing, replacing negative core beliefs with self-compassion, and painting to cope with stressors and negative thoughts. Receptive of discussion on sitting with the uncomfortable and emotional urges. Pt contributed to the discussion of distress tolerance including benefits and pt identified personal examples of what happens if their distress tolerance is low. Pt shared to improve distress tolerance, pt is going to work on checking her text messages and phone calls instead of avoiding them. Pt seemed to benefit from support from peers and increasing understanding of distress tolerance. Will continue IOP aftercare to reinforce healthy coping skills and maintain gains. Narrative Note: []
--- NOTE | 2022-10-21 16:36 | BH.TPR ---
Treatment Plan Review Date of Admission:: 09/30/22 Date of Treatment Plan Review:: 10/21/22 Admitting Diagnoses:: F31.81 Bipolar 2 disorder (currently depressed). 2. Generalized anxiety disorder. 4 3. PTSD. 4. Cluster B traits Current Diagnoses:: F31.81 Bipolar 2 disorder (currently depressed). 2. Generalized anxiety disorder. 4 3. PTSD. 4. Cluster B traits Patient's Response to Treatment:: Pt responding well to treatment AEB pt's consistent attendance, active engagement in group discussions, follow up with outpatient therapy and psychiatry, and reporting use of skills outside treatment environment. Pt utilizes IOP aftercare to process current stressors and identify coping strategies. Status of Current Problems and Symptoms: Ongoing stressors include maintaining progress made in IOP, job searching, becoming comfortable with not overscheduling herself, and living arrangement. Client notes mild depression and anxiety, but improved ability to manage symptoms. Problem #1 Problem Name:: Pt will maintain or see a reduction in sx compared to IOP admission scores Status of Goals:: Obj 1 complete with ongoing work encouraged- Pt has been able to maintain gains made in IOP as pt?s DSM-5 scores are 40% lower than they were at IOP admission. Based on pt's self-report she has been able to manage anxiety and depressive symptoms much easier than she has in the past. Obj 2 - complete with ongoing work encouraged. Pt has been consistently reporting self-care, thought challenging, positive self-talk, and identifying accomplishments. Team Recommendations:: Recommended client continue IOP aftercare group in addition to attending regular outpatient counseling in order to maintain gains.
== END 2022-11-03 23:59 ==
LOC: BHOG 08:08
PROVIDERS: PCP Physician Assistant; Referring Provider Psychiatry & Neurology Psychiatry; Visit Provider Psychiatry & Neurology Psychiatry
DX: F31.81 Bipolar II disorder (principal); F41.1 Generalized anxiety disorder; F43.10 Post-traumatic stress disorder, unspecified
CPT/HCPCS: 90853

== ENCOUNTER 2022-11-04 07:17 | Outpatient (RCR) | payer BC, SELFPAY ==
--- NOTE | 2022-11-18 10:36 | BH.DS_ITS ---
Discharge Summary Demographics Date of Admission:: 09/30/22 Discharge Date: 11/18/22 Presenting Problems at Admission:: Pt discharged from IOP tx and transitioned to IOP aftercare to maintain gains Pt made in IOP and to reinforce healthy coping skills. At admission to IOP aftercare, pt continued to report mild symptoms of depression, anxiety, intrusive thoughts, and inconsistent use of healthy coping skills at times. Pt also continued to experience stress with obtaining work, family, and self-image. Discharge Diagnoses:: F31.81 Bipolar 2 disorder (currently depressed). 2. Generalized anxiety disorder. 4 3. PTSD. 4. Cluster B traits Reason for Discharge:: Pt has been able to maintain gains made in IOP tx and prevent decompensation, successfully completing aftercare goals. Pt discharged and will continue with traditional outpatient counseling. Treatment Progress During Treatment & Response: Pt responded well and made progress in IOP aftercare as evidenced by pt's participation in group discussions and self- report of more consistently applying coping skills than prior to IOP admission. Pt's overall DSM-5 scores decreased by 45% from IOP admission. Based on pt's DSM-5 scores from 11/18/22, pt has been able to maintain gains made in IOP tx for depression, though pt self-reports continuing to struggle with consistent use of anxiety management skills and has experienced a recent influx in anxiety sx as a result of occupational stressors. Pt reports she has been consistent with outpatient counseling as well. Issues Still to be Addressed:: Would benefit from continued work on anxiety management and boundary setting skills. Recommended to continue with counseling to work on continuing to address PTSD sx, occupational stress coping skills, depression, anxiety, and overall mood management. Discharge Recommendations/Instructions:: Pt will continue seeing her providers at for medication management and individual counseling. Discharge Handout
--- NOTE | 2022-11-18 14:00 | BH.SGPN.GN ---
Behaviors/Verbalizations/Mental Status: []Pt alert and oriented, casually dressed and groomed. Eye contact good. Motor activity appropriate. Speech within normal limits. Affect congruent, mood content. Thoughts linear, logical, no signs of hallucinations or delusions. Client Response/Progress/Benefit: []Pt responded well to session AEB sharing and listening attentively to others. Pt has been consistent with her outpatient mental health appointments and medication compliance. Pt reports using positive self-talk, opposite action, and healthy distraction to help with managing her mental health symptoms. Pt participated in group discussion defining affirmations and why they are important. Pt provided insight throughout clinician?s presentation of tips for writing personal affirmations and wrote her own affirmations, including ?I am enough?. Pt appeared to benefit from increased knowledge of affirmation writing skills and creating her own affirmational statements to remind herself of outside tx environment. Will d/c from aftercare given consistent mental health maintenance and continue with outpatient mental health providers to maintain gains and prevent decompensation. Narrative Note: []
== END 2022-11-18 15:24 | disposition home or self-care (01) ==
LOC: BHOG 07:17
PROVIDERS: PCP Physician Assistant; Referring Provider Psychiatry & Neurology Psychiatry; Visit Provider Psychiatry & Neurology Psychiatry
DX: F31.81 Bipolar II disorder (principal); F41.1 Generalized anxiety disorder; F43.10 Post-traumatic stress disorder, unspecified
CPT/HCPCS: 90853